=== PATIENT | female | born 1990 | race Caucasian/White ===

== ENCOUNTER 2024-07-14 11:37 | Emergency (ER) | payer BC, SELFPAY ==
--- NOTE | ~2024-07-14 | CT_ITS ---
EXAMINATION: CT abdomen pelvis w con DATE: 07/14/2024 14:38 INDICATION: Abdominal pain TECHNIQUE: Computed tomography (CT) of the abdomen and pelvis was performed with 100 mL Omnipaque-350 intravenous contrast. Automated exposure control and iterative reconstruction technique were employe d. The dose-length product was 941.58 mGy-cm. COMPARISON: None FINDINGS: Couple calcified nodules in the dependent left lower lobe consistent with old granulomatous disease. Mild pectus excavatum which impresses upon the anterior wall of the heart which appears normal in siz e. No pericardial or pleural effusion. Liver, gallbladder, spleen, pancreas, bilateral adrenal glands and kidneys are normal. Bowels including the appendix are normal. Bladder, anteverted uterus and lesvia ateral adnexa are unremarkable. No free intraperitoneal gas or fluid. No pathologically enlarged abdo keiko or pelvic lymphadenopathy. Mild lumbar levocurvature with mild lumbar and lower thoracic spondy losis. A couple bone islands at the right femoral neck. IMPRESSION: 1. No acute intra-abdominal/pelvic process. Reviewed, dictated and finalized at location A.
[2024-07-14 11:52] VITALS: BP 135/90; PULSE 100; RESP 16; TEMP 36.1; O2SAT 100
[2024-07-14 12:14] LABS: BEDSIDEPREGUCG Negative (Negative)
[2024-07-14 12:17] LABS: Basophils Absolute Auto 0.1 K/mm3 (0.0-0.1); Basophils Percent Auto 1.3 % (0.2-1.2); Hematocrit 42.6 % (37.0-47.0); Hemoglobin 13.8 g/dL (12.0-15.0); Immature Granulocyte Absolute 0.01 K/mm3 (0.00-0.031); Immature Granulocyte Percent A 0.2 % (0-0.5); Lymphocytes Absolute Auto 1.04 K/mm3 (0.9-3.2); Mean Corpuscular HGB Conc 32.4 g/dl (32-36); Mean Corpuscular Hemoglobin 30.6 pg (26-34); Mean Corpuscular Volume 94.5 fl (80-100); Mean Platelet Volume 9.7 fl (7.4-10.4); Monocytes Absolute Auto 0.3 K/mm3 (0.1-0.6); Monocytes Percent Auto 6.6 % (2.6-8.5); Neutrophils Absolute Auto 3.3 K/mm3 (1.3-6.7); Neutrophils Percent Auto 69.9 % (45.5-73.1); Platelet Count Result 310 k/mm3 (150-375); Red Blood Count 4.51 M/mm3 (4.2-5.4); Red Cell Distribution Width 13.9 % (11.5-14.5); White Blood Count 4.7 K/mm3 (4.5-10.0)
[2024-07-14 12:23] LABS: Add Urine Microscopic? YES; Appearance Urine Clear (Clear); Bacteria Urine Rare /hpf; Bilirubin Urine Negative (Negative); Blood Urine Negative (Negative); Color Urine Yellow (Yellow); Glucose Urine UA Negative (Negative); Ketones Urine 1+ mg/dL (Negative); Leukocyte Esterase Ur 1+ LEU/UL (Negative); Nitrate Urine Negative (Negative); Non Pathogenic Casts 0-2; Protein Urine Negative (Negative); Specific Grav Ur 1.019 (1.001-1.035); Squamous Epithelial Cell Urine Occasional /hpf (Few); pH Urine 6.5 (5.0-9.0)
[2024-07-14 12:27] LABS: Alanine Aminotransferase 19 U/L (6-35); Albumin Level 4.6 g/dL (3.5-5.1); Alkaline Phosphatase 58 U/L (38-126); Anion Gap 9 mmol/L (4-12); Aspartate Amino Transferase 29 U/L (14-36); Bilirubin,Total 0.9 mg/dL (0.2-1.3); Blood Urea Nitrogen 8 mg/dL (7-17); Calcium 9.4 mg/dL (8.4-10.2); Carbon Dioxide 26 mmol/L (22-30); Chloride 104 mmol/L (98-107); Estimated CRCL calculation 124 ml/min; Estimated Glomerular Filt Rate > 60; Glucose 105 mg/dL (65-110); Lipase 46 U/L (23-300); Sodium 139 mmol/L (137-145)
--- NOTE | 2024-07-14 12:36 | ED.ABDPAIN ---
HPI - Abdominal Pain General Chief Complaint: Abdominal Pain Stated Complaint: Abd pain since -worse since 399 Time Seen by Provider: 07/14/24 12:35 Source: patient and family Mode of arrival: ambulatory Limitations: no limitations History of Present Illness HPI narrative: 33 years old white female came to the ED by private car complaining of mid abdominal pain, across the mid abdomen started 4 days ago, intermittent, get worse when she tried to have a bowel movement. She denies any fever, chills, nausea, vomiting. No history of abdominal surgery. Patient does not take medication at home. Does not smoke or drink or use drugs. Related Data Allergies Allergy/AdvReac Type Severity Reaction Status Date / Time No Known Allergies Allergy Verified 07/14/24 21:19 Review of Systems Review of Systems: All systems reviewed & are unremarkable except as noted in HPI and below Exam Narrative: General appearance: Well-developed, well-nourished Skin: Normal color Head: Normocephalic, nontraumatic Eyes: Clear conjunctiva ENT: Oropharynx normal, ears normal, nose normal Neck: Supple, nontender Chest and respiratory: Airway patent, no respiratory distress, no accessory muscle use Heart: Regular rate/rhythm Abdomen: Soft, nontender, no organomegaly, quiet bowel sounds Vascular: Normal peripheral pulses, normal capillary refill. Musculoskeletal: Normal range of motion, nontender back Neurologic: Alert and oriented ?3, WEIGHER AND CRUSHER is normal as tested, no gross motor deficit Course Course Emergency Course: Patient presents with mid abdominal pain Vital signs are stable Physical examination is unremarkable Blood workup includes CBC, CMP, lipase showed insignificant abnormality Urinalysis showed evidence of infection CT scan of the abdomen and pelvis with IV contrast showed no acute intra-abdominal abnormality Diagnosis urinary tract infection Discharged on Macrobid The pt was discharged to home.the pt,s condition upon discharge was fair,education was provided to the pt in reference to the final impression,discharge study results,treatment,prognosis and need for follow up . Vital Signs Vital signs: Vital Signs Temperature 36.1 C L 07/14/24 11:52 Pulse Rate 100 07/14/24 11:52 Respiratory Rate 16 07/14/24 11:52 Blood Pressure 135/90 07/14/24 11:52 Pulse Oximetry 100 07/14/24 11:52 Oxygen Delivery Room Air 07/14/24 11:52 Temperature 36.1 C L 07/14/24 11:52 Pulse Rate 76 07/14/24 15:19 Respiratory Rate 17 07/14/24 15:19 Blood Pressure 122/89 07/14/24 15:19 Pulse Oximetry 100 07/14/24 15:19 Oxygen Delivery Room Air 07/14/24 11:52 MDM - Abdominal Pain Lab Data 07/14/24 12:11 07/14/24 12:11 Labs: Lab Results 07/14/24 07/14/24 Range/Units 12:09 12:11 WBC 4.7 (4.5-10.0) K/mm3 RBC 4.51 (4.2-5.4) M/mm3 Hgb 13.8 (12.0-15.0) g/dL Hct 42.6 (37.0-47.0) % MCV 94.5 (80-100) fl MCH 30.6 (26-34) pg MCHC 32.4 (32-36) g/dl RDW 13.9 (11.5-14.5) % Plt Count 310 (150-375) k/mm3 MPV 9.7 (7.4-10.4) fl Immature Gran % (Auto) 0.2 (0-0.5) % Neut % (Auto) 69.9 (45.5-73.1) % Lymph % (Auto) 22.0 (18.3-44.2) % [place] % (Auto) 6.6 (2.6-8.5) % Eos % (Auto) 0.0 (0-4.4) % Baso % (Auto) 1.3 H (0.2-1.2) % Lymph # (Auto) 1.04 (0.9-3.2) K/mm3 [place] # (Auto) 0.3 (0.1-0.6) K/mm3 Eos # (Auto) 0.0 (0-0.3) K/mm3 Baso # (Auto) 0.1 (0.0-0.1) K/mm3 Abs Immat Gran (auto) 0.01 (0.00-0.031) K/mm3 Absolute Neuts (auto) 3.3 (1.3-6.7) K/mm3 Absolute Nucleated RBC 0.000 (0.0-0.012) K/mm3 Nucleated RBC % 0.0 (0.0-0.2) % Sodium 139 (137-145) mmol/L Potassium 4.0 (3.4-5.0) mmol/L Chloride 104 (98-107) mmol/L Carbon Dioxide 26 (22-30) mmol/L Anion Gap 9 (4-12) mmol/L BUN 8 (7-17) mg/dL Creatinine 0.69 L (0.7-1.0) mg/dL Estim Creat Clear Calc 124 ml/min Estimated GFR > 60 (59 - ) Glucose 105 (65-110) mg/dL Calcium 9.4 (8.4-10.2) mg/dL Total Bilirubin 0.9 (0.2-1.3) mg/dL AST 29 (14-36) U/L ALT 19 (6-35) U/L Alkaline Phosphatase 58 (38-126) U/L Total Protein 8.0 (6.3-8.2) g/dL Albumin 4.6 (3.5-5.1) g/dL Lipase 46 (23-300) U/L Urine Color Yellow (Yellow) Urine Appearance Clear (Clear) Urine pH 6.5 (5.0-9.0) Ur Specific Sells 1.019 (1.001-1.035) Urine Protein Negative (Negative) mg/dL Urine Glucose (UA) Negative (Negative) mg/dL Urine Ketones 1+ H (Negative) mg/dL Ur Blood (Man) Negative (Negative) Urine Nitrate Negative (Negative) Urine Bilirubin Negative (Negative) Urine Urobilinogen 1.0 (<2.0) mg/dL Leukocyte Esterase Rfl 1+ H (Negative) DANIEL/UL Urine RBC 3-5 H (0-2) /hpf Urine WBC 6-10 H (0-3) /hpf Ur Squamous Epith Cells Occasional (Few) /hpf Urine Bacteria Rare /hpf Urine Casts 0-2 POC Urine HCG, Qual Negative (Negative) Imaging Data Radiologist's impression: ITS Impressions Abdomen/Pelvis CT 07/14/24 14:39 IMPRESSION: 1. No acute intra-abdominal/pelvic process. Discharge Plan Discharge Clinical Impression: Urinary tract infection Patient Disposition: Home Condition: Stable Instructions: Antibiotic Form, Urinary Tract Infection in Women (DC) Additional Instructions: Return if symptoms are worsening , call your family physician for appointment, take Tylenol as as needed for aches and pain, continue home medications. Patient Language: Amharic Prescriptions: New nitrofurantoin monohyd/m-cryst [Macrobid] 100 mg capsule 100 mg PO Q12H 5 Days Qty: 10 0RF Rx Instructions: must administer with a meal/food Follow-up/Referrals: PHYSICIAN,BRAILLE DUPLICATING MACHINE OPERATOR [Primary Care Provider] -
[2024-07-14 15:19] VITALS: BP 122/89; PULSE 76; RESP 17; O2SAT 100
--- OUTSIDE RECORDS SUMMARY | 2024-07-14 18:01 | XMS_ITS | Continuity of Care Document ---
Author Organization [facility] Address [address] [place] [address] Phone Care Team Providers Care Life Skills Instructor Name Role Phone Demetrius Brito MD, FACS Unavailable Unavailab le Allergies, Adverse Reactions, Alerts Substance Reaction Status Criticality No Known Allergies Active No Inform ation Medications Medication Instructions Dosage Effective Dates (start - stop) Status Comments No Drug Therapy Prescribed Procedures Procedure Date No Charge Optomap Fundus Photos 021 Office/outpatient Visit, Est No Charge Optomap Fundus Photos 020 No Charge Orbscan Refraction Eye Exam, New Patient No Charge Refraction Refraction Eye Exam, New Patient Eye Exam & Treatment Eye Exam & Treatment Cntct Lens Hydrophilic Toric Or Prism Ba llast Eye Exam & Treatment CL Replacement - Other Lens Eye Exam & Treatment CL Replacement - Other Lens Eye Exam & Treatment Advance Directives Directive Yes / No Effective Date File Name No Information Encounters Encounter Description Practice Location Reason(s) For Visit Diagnoses Date Provider Providers Copied on Encounter [facility], [address], [place], [place], [address], tel:[phone] SEC Maia Chaparro No Information 8- 4 [place] Demetrius. [facility] [address], [address], [place], [place], [address], [place]. tel:[phone] Office/outpa tient Visit, Est [employer] [facility], [facility] [employer] [address], [place], [place], [address], [place] tel:[phone] SEC Maia Chaparro Complete Exam (chief complaint) AlbinismNysta gmus 1 Zeina OD Jessika. [facility] [employer] [address], [address], [place], [place], [address], [place]. tel:[phone] Referring Provider: Demetrius Garcia, [facility] [address], [place], [address] . tel:[phone] [employer] [facility], [facility] [employer] [address], [place], [place], [address], [place] tel:[phone] SEC [place] ARAIZA Professional Complete Exam (chief complaint) NystagmusAlbi nism 0-[address] [facility] [address], [address], [place], [place], [address], [place]. tel:[phone] Referring Provider: Demetrius Garcia, [facility] [address], [place], [address] . tel:[phone] [employer] [facility], [facility] [employer] [address], [place], [place], [address], [place] tel:[phone] SEC [place] ARAIZA Professional glasses check (chief complaint) Nystagmus 3-201 6 Kory Carlin. [address] [facility], [facility] [place] [address], [place]. tel:[phone] Referring Provider: Tesfaye Garcia [address] [facility] [address], [place], [address] . tel:[phone] [facility], [address], [place], [place], [address], [place] tel:[phone] SEC [place] Professional Difficulty reading (chief complaint) AlbinismNysta gmus 6 Wankaby Carlin. [address] [facility], [address], [place], [place], [address], [place]. tel:[phone] Referring Provider: Tesfaye Garcia, [address] [facility] [address], [place], [address] . tel:[phone] [facility], [address], [place], [place], [address], [place] tel:[phone] SEC [place] TEODORA Professional No Information 2 Wankaby Carlin. [address] [facility], [address], [place], [place], [address], [place]. tel:[phone] Referring Provider: Tesfaye Garcia, [address] [facility] [address], [place], [address] . tel:[phone] [facility], [address], [place], [place], [address], [place] tel:[phone] SEC [place] Professional No Information 1 Wannilson Carlin. [address] [facility], [address] [place], [address], [place]. tel:[phone] Referring Provider: Tesfaye Garcia, [address] [facility] [address], [place], [address] . tel:[phone] [facility], [address], [place], [place], [address], [place] tel:[phone] SEC [place] Professional No Information Michael-2 1-201 0 [employer] [facility] . [address] [facility], [address], [place], [place], [address], [place]. tel:[phone] Referring Provider: Tesfaye Garcia, [address] [facility] [address], [place], [address] . tel:[phone] [facility], [address], [place], [place], [address], [place] tel:[phone] SEC [place] Professional No Information Dec-2 8-200 9 Wankaby Carlin. [address] [facility], [address], [place], [place], [address], [place]. tel:[phone] [facility], [address], [place], [place], [address], [place] tel:[phone] SEC [place] TEODORA Professional No Information Nov-0 5-200 8 [employer] [facility] . [address] [facility], [address], [place], [place], [address], [place]. tel:[phone] Referring Provider: Tesfaye Bradleymarionaby Garcia, [address] [facility] [address], [place], [address] . tel:[phone] [facility], [address], [place], [place], [address], [place] tel:[phone] SEC [place] TE[place]A Professional No Information Oct-1 5-200 8 Wannilson Carlin. [address] [facility], [address] [place], [address], [place]. tel:[phone] [facility], [address], [place], [place], [address], [place] tel:[phone] SEC [place] TE[place] Professional No Information Dec-2 1-200 7 [facility] . [address] [facility], [address], [place], [place], [address], [place]. tel:[phone] Referring Provider: Tesfaye Garcia, [address] [facility] [address], [place], [address] . tel:[phone] [facility], [address], [place], [place], [address], [place] tel:[phone] SEC [place] TE[place] Professional No Information Kory Carlin. [address] [facility], [address], [place], [place], [address], [place]. tel:[phone] Family History Family Member Type Diagnosis Age At Onset No Information Payers Payer name Insurance type Covered republican ID Tiffany leon(s) [employer] [id number] Social History Type Description Quantity Date Captured Comments Alcohol Use Details Unknown Caffeine Use Details Unknown Tobacco Use Status No Information Smoking Status No Information Sex Female Chief Complaint And Reason For Visit No Information Reason For Referral Reason For Referral No Information Plan Of Treatment Date Type Action Status Appointment Maricruz Telles BOOKED History Of Present Illness Encounter Date Complaint History Of Prese nt Illness Complete Exam The 29 year old female presents for evaluation of Complete Exam in the right eye and left eye. Hx of Nystagmus OU and OC Albinism OU. Pt reports stable VA, OU, DV and NV, x 1 yr. Pt would like to have DL form filled out. Complete Exam The 28 year old female presents for evaluation of Complete Exam in the right eye and left eye. Hx of Ocular Albinism and Nystagmus OU. Patient denies any problems or changes with VA. Patient states she hasn't had eye eyes examined since she seen Dr. Horn. Patient would like an updated rx for glasses, aware of fee. Patient does NOT have a PCP. glasses check Difficulty reading The 24 year o ld female presents for a complete exam ou. Monitoring ocular albinism. Patient would like to get a new pair of glasses. Patient denies any changes in vision. Functional Status Date Functional Assessmen t No Information Medications Administered Medication Instructions Dosage Effective Dates (start - stop) Status Comments No Drug Therapy Prescribed Instructions Date Instruction Additional Infor amado Impression/Plan Impression/Plan Impression/Plan - Gl asses check only. Minor change in OS found. New rx for glasses given. Return to clinic as scheduled for routine care. Impression/Plan - Di scussed diagnosis in detail. Will continue to monitor. No treatment needed. Rx for glasses given. Return to clinic in 2 years for complete exam or sooner with any problems. Follow up - Return i n 2 years with Tesfaye Horn M.D. for Complete Exam. Nystagmus - Educational material given Related to Nystagmus Assessments Type Assessment Date No Information Patient Care Teams Name Effective Dates (start - stop) Status Members No Information
--- OUTSIDE RECORDS SUMMARY | 2024-07-14 18:05 | XMS_ITS | Continuity of Care Document ---
Author Organization [facility] Address [address] [place] [address] Phone Care Team Providers Care Real Estate Manager Name Role Phone Demetrius Brito MD, FACS [...] Diagnoses Date Provider Providers Copied on Encounter [facility], [address], [place], [place], [address], tel:[phone] SEC Maia Chaparro No Information 8- 4 [place] Demetrius. [facility] [address], [address], [place], [place], [address], [place]. tel:[phone] Office/outpa tient Visit, Est [facility] [facility], [facility] [address], [place], [place], [address], [place] tel:[phone] SEC Maia Chaparro Complete Exam (chief complaint) AlbinismNysta gmus 1 Zeina OD Jessika. [facility] [address], [address], [place], [place], [address], [place]. tel:[phone] Referring Provider: Demetrius Garcia, [facility] [address], [place], [address] . tel:[phone] [employer] [facility], [facility] [address], [place], [place], [address], [place] tel:[phone] SEC [place] ARAIZA Professional Complete Exam (chief complaint) NystagmusAlbi nism 0-202 0 Alisha Romo. [facility] [address], [address], [place], [place], [address], [place]. tel:[phone] Referring Provider: Demetrius Garcia, [facility] [address], [place], [address] . tel:[phone] [employer] [facility], [facility] [address], [place], [place], [address], [place] tel:[phone] SEC [place] ARAIZA Professional glasses check (chief complaint) Nystagmus 3-201 6 Kory Carlin. [address] [facility], [facility] [place], [address], [place]. tel:[phone] Referring Provider: Tesfaye Garcia [address] [facility] [address], [place], [address] . tel:[phone] [facility], [address], [place], [place], [address], [place] tel:[phone] SEC [place] Professional Difficulty reading (chief complaint) AlbinismNysta gmus 6 Wankaby Carlin. [address] [facility], [address], [place], [place], [address], [place]. tel:[phone] Referring Provider: Tesfaye Garcia, [address] [facility] [address], [place], [address] . tel:[phone] [facility], [address], [place], [place], [address], [place] tel:[phone] SEC [place] TEODORA Professional No Information 2 Wankaby Carlin. [address] [facility], [address], [place], [place], [address], [place]. tel:[phone] Referring Provider: Tesfaye Garcia, [address] [facility] [address], [place], [address] . tel:[phone] [facility], [address], [place], [place], [address], [place] tel:[phone] SEC [place] Professional No Information 1 Wannilson Carlin. [address] [facility], [address] [place], [address], [place]. tel:[phone] Referring Provider: Tesfaye Garcia, [address] [facility] [address], [place], [address] . tel:[phone] [facility], [address], [place], [place], [address], [place] tel:[phone] SEC [place] Professional No Information Michael-2 1-201 0 [facility] . [address] [facility], [address], [place], [place], [address], [place]. tel:[phone] Referring Provider: Tesfaye Garcia, [address] [facility] [address], [place], [address] . tel:[phone] [facility], [address], [place], [place], [address], [place] tel:[phone] SEC [place] Professional No Information Dec-2 8-200 9 Wankaby Carlin. [address] [facility], [address], [place], [place], [address], [place]. tel:[phone] [facility], [address], [place], [place], [address], [place] tel:[phone] SEC [place] TEODORA Professional No Information Nov-0 5-200 8 [employer] [facility] [employer] . [address] [facility], [address], [place], [place], [address], [place]. tel:[phone] Referring Provider: Tesfaye Bradleymarionaby Garcia, [address] [facility] [address], [place], [address] . tel:[phone] [facility], [address], [place], [place], [address], [place] tel:[phone] SEC [place] TEODORA Professional No Information Oct-1 5-200 8 Wannilson Carlin. [address] [facility], [address] [place], [address], [place]. tel:[phone] [facility], [address], [place], [place], [address], [place] tel:[phone] SEC [place] Professional No Information Dec-2 1-200 7 [facility] . [address] [facility], [address], [place], [place], [address], [place]. tel:[phone] Referring Provider: Tesfaye Garcia, [address] [facility] [address], [place], [address] . tel:[phone] [facility], [address], [place], [place], [address], [place] tel:[phone] SEC [place] TEODORA Professional No Information Kory Carlin. [address] [facility], [address], [place], [place], [address], [place]. tel:[phone] Family History Family Member Type Diagnosis Age At Onset No Information Payers Payer name Insurance type Covered green party ID Tiffany leon(s) BCCARMEN [place] Out Of [place] [id number] Social History Type Description Quantity Date Captured [...] to clinic as scheduled for routine care. Nystagmus - Educational material given Related to Nystagmus Follow up - Return i n 2 years with Tesfaye Horn M.D. for Complete Exam. Impression/Plan - Di scussed diagnosis in detail. Will continue to monitor. No treatment needed. Rx for glasses given. Return to clinic in 2 years for complete exam or sooner with any problems. Assessments Type Assessment Date No Information Patient Care Teams Name Effective Dates (start - stop) Status Members No Information
== END 2024-07-14 15:42 | disposition home or self-care (01) ==
PROVIDERS: Emergency Medicine; Emergency Provider Emergency Medicine
DX: N39.0 Urinary tract infection, site not specified (principal)
CPT/HCPCS: 36415; 74177; 80053; 81001; 81025; 83690; 85025; 87086; 99284; Q9967

== ENCOUNTER 2024-07-14 21:18 | Emergency (ER) | payer BC, SELFPAY ==
--- OUTSIDE RECORDS SUMMARY | 2024-07-14 21:20 | XMS_ITS | Continuity of Care Document ---
Author Organization [facility] Address [address] [place] [address] Phone Care Team Providers Care Pool Lifeguard Name Role Phone Demetrius Brito MD, FACS [...] Diagnoses Date Provider Providers Copied on Encounter [facility], [address], [place], [place], [address], tel:[phone] SEC Maia Chaparro No Information 8- 4 [place] Demetrius. [facility] [address], [address], [place], [place], [address], [place]. tel:[phone] Office/outpa tient Visit, Est [facility] [facility], [facility] [address], [place], [place], [address], [place] tel:[phone] SEC Maia Chaparro Complete Exam (chief complaint) AlbinismNysta gmus 1 Zeina OD Jessika. [facility] [employer] [address], [address], [place], [place], [address], [place]. tel:[phone] Referring Provider: Demetrius Garcia, [facility] [address], [place], [address] . tel:[phone] [employer] [facility], [facility] [address] [address], [place], [place], [address], [place] tel:[phone] SEC [place] ARAIZ[place] Professional Complete Exam (chief complaint) NystagmusAlbi nism 0-202 0 Alisha Romo. [facility] [address], [address], [place], [place], [address], [place]. tel:[phone] Referring Provider: Demetrius Garcia, [facility] [address], [place], [address] . tel:[phone] [employer] [facility], [facility] [address], [place], [place], [address], [place] tel:[phone] SEC [place] ARAIZ[place] Professional glasses check (chief complaint) Nystagmus 3-201 6 Kory Carlin. [address] [facility], [facility] [place], [address], [place]. tel:[phone] Referring Provider: Tesfaye Gacria [address], [place], [address] . tel:[phone] [facility], [address], [place], [place], [address], [place] tel:[phone] SEC [place] Professional Difficulty reading (chief complaint) AlbinismNysta gmus 6 Wankaby Carlin. [address], [address], [place], [place], [address], [place]. tel:[phone] Referring Provider: Tesfaye Garcia, [address], [place], [address] . tel:[phone] [facility], [address], [place], [place], [address], [place] tel:[phone] SEC [place] TEODORA Professional No Information 2 Wankaby Carlin. [address], [address], [place], [place], [address], [place]. tel:[phone] Referring Provider: Tesfaye Garcia, [address], [place], [address] . tel:[phone] [facility], [address], [place], [place], [address], [place] tel:[phone] SEC [place] Professional No Information 1 Wannilson Carlin. [address], [address] [place], [address], [place]. tel:[phone] Referring Provider: Tesfaye Garcia, [address], [place], [address] . tel:[phone] [facility], [address], [place], [place], [address], [place] tel:[phone] SEC [place] Professional No Information Michael-2 1-201 0 [employer] . [address], [address], [place], [place], [address], [place]. tel:[phone] Referring Provider: Tesfaye Garcia, [address], [place], [address] . tel:[phone] [facility], [address], [place], [place], [address], [place] tel:[phone] SEC [place] Professional No Information Dec-2 8-200 9 Wankaby Carlin. [address], [address], [place], [place], [address], [place]. tel:[phone] [facility], [address], [place], [place], [address], [place] tel:[phone] SEC [place] TEODORA Professional No Information Nov-0 5-200 8 [employer] . [address] [facility], [address], [place], [place], [address], [place]. tel:[phone] Referring Provider: Tesfaye Bradleymarionaby Garcia, [address], [place], [address] . tel:[phone] [facility], [address], [place], [place], [address], [place] tel:[phone] SEC [place] TE[place] Professional No Information Oct-1 5-200 8 Wannilson Carlin. [address], [address] [place], [address], [place]. tel:[phone] [facility], [address], [place], [place], [address], [place] tel:[phone] SEC [place] TE[place]OR[place] Professional No Information Dec-2 1-200 7 [employer] . [address] [facility] [facility], [address], [place], [place], [address], [place]. tel:[phone] Referring Provider: Tesfaye Garcia, [address], [place], [address] . tel:[phone] [facility], [address], [place], [place], [address], [place] tel:[phone] SEC [place] TE[place]ORA Professional No Information Kory Carlin. [address], [address], [place], [place], [address], [place]. tel:[phone] Family History Family Member Type Diagnosis Age At Onset No Information Payers Payer name Insurance type Covered republican ID Tiffany leon(s) [employer] [place] Out Of State [id number] Social History Type Description Quantity Date Captured [...]
[2024-07-14 21:35] VITALS: BP 146/86; PULSE 65; RESP 17; TEMP 36.1; O2SAT 100
--- NOTE | 2024-07-15 00:34 | PC.NURSE ---
Pt called x2 w no response. Marked as LWBS triaged on dispo.
--- OUTSIDE RECORDS SUMMARY | 2024-07-15 02:54 | XMS_ITS | Continuity of Care Document ---
Author Organization [facility] Address [address] [place] [address] Phone Care Team Providers Care Logging Supervisor Name Role Phone Demetrius Brito MD, FACS [...] Diagnoses Date Provider Providers Copied on Encounter [facility], [address], [place], [place], [address], tel:[phone] SEC Maia Chaparro No Information 8- 4 [place] Demetrius. [facility] [employer], [address], [place], [place], [address], [place]. tel:[phone] Office/outpa tient Visit, [facility], [facility] [address], [place], [place], [address], [place] tel:[phone] SEC Maia Chaparro Complete Exam (chief complaint) AlbinismNysta gmus 1 Zeina OD Jessika. [facility] [employer] [address], [address], [place], [place], [address], [place]. tel:[phone] Referring Provider: Demetrius Garcia, [facility] [employer] [address], [place], [address] . tel:[phone] [facility], [facility] [employer] [address], [place], [place], [address], [place] tel:[phone] SEC [place]IZ[place] Professional Complete Exam (chief complaint) NystagmusAlbi nism 0-202 0 Alisha Romo. [facility] [employer], [address], [place], [place], [address], [place]. tel:[phone] Referring Provider: Demetrius Garcia, [facility] [address], [place], [address] . tel:[phone] [facility], [facility] [employer] [address], [place], [place], [address], [place] tel:[phone] SEC [place]IZ[place] Professional glasses check (chief complaint) Nystagmus 3-201 6 Kory Carlin. [address] [facility], [facility] [place], [place], [address], [place]. tel:[phone] Referring Provider: Tesfaye Garcia [address], [place], [address] . tel:[phone] [facility], [address], [place], [place], [address], [place] tel:[phone] SEC [place] Professional Difficulty reading (chief complaint) AlbinismNysta gmus 6 Wankaby Carlin. [address] [facility], [address], [place], [place], [address], [place]. tel:[phone] Referring Provider: Tesfaye Garcia, [address], [place], [address] . tel:[phone] [facility], [address], [place], [place], [address], [place] tel:[phone] SEC [place] TE[place] Professional No Information 2 Wankaby Carlin. [address] [facility], [address], [place], [place], [address], [place]. tel:[phone] Referring Provider: Tesfaye Garcia, [address], [place], [address] . tel:[phone] [facility], [address], [place], [place], [address], [place] tel:[phone] SEC [place] Professional No Information 1 Wannilson Carlin. [address] [facility], [address] [place], [address], [place]. tel:[phone] Referring Provider: Tesfaye Garcia, [address], [place], [address] . tel:[phone] [facility], [address], [place], [place], [address], [place] tel:[phone] SEC [place] Professional No Information Michael-2 1-201 0 [employer] . [address] [facility], [address], [place], [place], [address], [place]. tel:[phone] Referring Provider: Tesfaye Garcia, [address], [place], [address] . tel:[phone] [facility], [address], [place], [place], [address], [place] tel:[phone] SEC [place] Professional No Information Dec-2 8-200 9 Wankaby Carlin. [address] [facility], [address], [place], [place], [address], [place]. tel:[phone] [facility], [address], [place], [place], [address], [place] tel:[phone] SEC [place] TE[place]ORA Professional No Information Nov-0 5-200 8 [facility] [employer] . [address] [facility], [address], [place], [place], [address], [place]. tel:[phone] Referring Provider: Tesfaye Bradleymarionaby Garcia, [address], [place], [address] . tel:[phone] [facility], [address], [place], [place], [address], [place] tel:[phone] SEC [place] Professional No Information Oct-1 5-200 8 Wannilson Carlin. [address], [address] [place], [address], [place]. tel:[phone] [facility], [address], [place], [place], [address], [place] tel:[phone] SEC [place] TE[place] Professional No Information Dec-2 1-200 7 [employer] . [address] [facility], [address], [place], [place], [address], [place]. tel:[phone] Referring Provider: Tesfaye Garcia, [address], [place], [address] . tel:[phone] [facility], [address], [place], [place], [address], [place] tel:[phone] SEC [place] TE[place] Professional No Information Kory Carlin. [address] [facility] [address], [address], [place], [place], [address], [place]. tel:[phone] Family History Family Member Type Diagnosis Age At Onset No Information Payers Payer name Insurance type Covered democrat ID Tiffany leon(s) [employer] [place] Out Of [place] [id number] Social History Type Description Quantity Date Captured [...]
--- OUTSIDE RECORDS SUMMARY | 2024-07-15 02:56 | XMS_ITS | Referral Summary ---
Author Organization [facility] al Address [address] [place] [address] Care Team Providers Care Teamcenter Solution Architect Name Role Phone No, Physician Primary Care Provider [phone] Encounters Date Type Department Care Team Description 07/14/2024 11:31 PM CDT - Present Emergency [facility] Emergency Department [address] [place] [address] Isamar Obrien MD from Last 3 Months Allergies No known active allergies Social History Tobacco Use Types Packs/Day Years Used Date Smoking Tobacco: Never Assessed Personal Safety Answer Date Recorded Have you ever been in or are you currently in a harmful physical or emotional relationship or is someone making you feel afraid or unsafe? Denies 07/14/2024 Comments No Sex and Gender Information Value Date Recorded Sex Assigned at Not on file Legal Sex Female 4:53 PM [employer] Gender Identity Not on file Sexual Orientation Not on file Last Filed Vital Signs Vital Sign Reading Time Taken Comments Blood Pressure 131/84 07/15/2024 1:50 AM CDT Pulse 57 07/15/2024 1:50 AM CDT Temperature 36.7 C (98.1 F) 07/14/2024 10:24 PM CDT Respiratory Rate 16 07/15/2024 1:50 AM CDT Oxygen Saturation 100% 07/15/2024 1:50 AM CDT Inhaled Oxygen Concentration - - Weight 113.4 kg (250 lb) 07/14/2024 10:24 PM CDT Height 170.2 cm (5' 7) 07/14/2024 10:24 PM CDT Body Mass Index 39.16 07/14/2024 10:24 PM CDT Plan of Treatment Not on file Procedures * The patient is currently admitted. The information in this section might not be complete until the patient is discharged. Procedure Name Priority Date/Time Associated Diagnosis Comments EGFR STAT 07/15/2024 12:57 AM CDT DIFFERENTIAL AUTO STAT 07/15/2024 12: 57 AM CDT LIPASE STAT 07/15/2024 12:57 AM CDT COMPREHENSIVE METABOLIC PANEL STAT 07/15/2024 12:57 AM CDT CBC WITH AUTO DIFFERENTIAL STAT 07/15/2024 12:57 AM CDT POCT HCG, URINE Routine 07/14/2024 11:36 PM CDT URINALYSIS, MICROSCOPIC ONLY STAT 07/14/2024 11:34 PM CDT URINALYSIS AND REFLEX TO MICROSCOPIC STAT 07/14/2024 11:34 PM CDT ECG 12-LEAD STAT 07/14/2024 10:26 PM CDT from Last 3 Months Results * eGFR (07/15/2024 12:57 AM CDT) eGFR >90 >=60 mL/min/1. 73 m2 Comment: Interpretive Data Reference Interval Normal >/= 90 mL/min/1.73m2 Mildly decreased* 60 - 89 mL/min/1.73m2 Mildly to moderately decreased 45 - 59 mL/min/1.73m2 Moderately to severely decreased 30 - 44 mL/min/1.73m2 Severely decreased 15 - 29 mL/min/1.73m2 Kidney Failure < 15 mL/min/1.73m2 *Relative to young adult level Estimated glomerular filtration rate is determined by the 2020 CKD-EPI equation recommended by the National Kidney [employer] (A Unifying Approach to GFR Estimation: Recommendations of the NKF-ASK Task Force on Reassessing the Inclusion of Race in Diagnosing Kidney Disease, JASN 2020). The CKD-EPI equation should not be used for patients with unstable renal function and has not been validated in children and those over 70. Current interpretive data was last reviewed 2020. Blood 07/15/2024 12:5 7 AM CDT 07/15/2024 1:19 AM CDT Dov German MD LAB BLOOD ORDERABLES Final Result [facility] Department [place] [address] * Differential, auto (07/15/2024 12:57 AM CDT) Neutrophil abs 3.88 1.50 - 6.50 K/cumm Imm gran abs 0.04 0.00 - 0.10 K/cumm [facility] Lymphocyte abs 1.12 0.80 - 3.30 K/cumm [facility] Monocyte abs 0.35 0.20 - 0.80 K/cumm [facility] Eosinophil abs 0.16 0.00 - 0.50 K/cumm [facility] Basophil abs 0.04 0.00 - 0.10 K/cumm [facility] Neutrophil pct 69.4 % [facility] Comment: Interpretive Data Percent cell count reference ranges are not reported, since discordance with absolute values may lead to misinterpretation of CBC data. Current Interpretive Data was last revised on 2017. Imm gran pct 0.7 % [facility] Comment: Interpretive Data Percent cell count reference ranges are not reported, since discordance with absolute values may lead to misinterpretation of CBC data. Current Interpretive Data was last revised on 2017. Lymphocyte pct 20.0 % [facility] Comment: Interpretive Data Percent cell count reference ranges are not reported, since discordance with absolute values may lead to misinterpretation of CBC data. Current Interpretive Data was last revised on 2017. Monocyte pct 6.3 % [facility] Comment: Interpretive Data Percent cell count reference ranges are not reported, since discordance with absolute values may lead to misinterpretation of CBC data. Current Interpretive Data was last revised on 2017. Eosinophil pct 2.9 % [facility] Comment: Interpretive Data Percent cell count reference ranges are not reported, since discordance with absolute values may lead to misinterpretation of CBC data. Current Interpretive Data was last revised on 2017. Basophil pct 0.7 % [facility] Comment: Interpretive Data Percent cell count reference ranges are not reported, since discordance with absolute values may lead to misinterpretation of CBC data. Current Interpretive Data was last revised on 2017. Blood 07/15/2024 12:5 7 AM CDT 07/15/2024 1:19 AM CDT us Dov German MD LAB BLOOD ORDERABLES Final Result [facility] Department [place] [address] * CBC with auto differential (07/15/2024 12:57 AM CDT) WBC 5.59 3.80 - 9.90 K/cumm Hgb 13.5 11.9 - 15.5 g/dL [facility] Hct 40.2 35.6 - 45.5 % [facility] Plt 292 150 - 400 K/cumm [facility] MPV 10.1 9.1 - 12.3 fL [facility] RBC 4.36 3.90 - 5.20 M/cumm [facility] MCV 92.2 81.3 - 96.4 fL [facility] MCH 31.0 27.1 - 33.3 pg [facility] MCHC 33.6 32.3 - 35.7 g/dL [facility] RDW CV 14.0 11.1 - 14.9 % [facility] RDW SD 47.3 35.7 - 48.1 fL [facility] NRBC abs 0.00 0.00 - 0.01 K/cumm [facility] Blood 07/15/2024 12:5 7 AM CDT 07/15/2024 1:19 AM CDT us Dov German MD LAB BLOOD ORDERABLES Final Result [facility] [place] [address] * Lipase (07/15/2024 12:57 AM CDT) Pathologist [facility] Lipase 15 10 - 99 Units/L Blood 07/15/2024 12:5 7 AM CDT 07/15/2024 1:19 AM CDT Dov German MD LAB BLOOD ORDERABLES Final Result Performing Organization Address [facility] de Phone Number [facility] [place] [address] * Comprehensive metabolic panel (07/15/2024 12:57 AM CDT) [facility] Sodium 138 135 - 145 mmol/L Potassium, pl 4.0 3.3 - 4.9 mmol/L [facility] Chloride 101 97 - 110 mmol/L [facility] CO2 26 22 - 32 mmol/L [facility] Anion gap 11 2 - 15 mmol/L [facility] BUN 9 6 - 25 mg/dL [facility] Creatinine 0.82 0.60 - 1.10 mg/dL [facility] Glucose 96 70 - 199 mg/dL [facility] Comment: Interpretive Data Fasting glucose >/= 126 mg/dl is diagnostic for diabetes. Fasting is defined as no caloric intake for at least 8 hours. Fasting glucose between 100 mg/dl to 125 mg/dl is diagnostic of prediabetes. In a patient with classic symptoms of hyperglycemia or hyperglycemic crisis, a random glucose >/= 200 mg/dl is diagnostic for diabetes. In the absence of unequivocal hyperglycemia, results should be confirmed by repeat testing. The classification and Diagnosis of Diabetes Diabetes Care 2021; 46: S19-S40. Current interpretive data was last revised 2022. Calcium 9.3 8.5 - 10.3 mg/dL [facility] Bilirubin, total 0.9 0.1 - 1.2 mg/dL [facility] Protein, pl 7.9 6.5 - 8.5 g/dL [facility] Albumin 4.5 3.5 - 5.0 g/dL [facility] Alk phos 58 40 - 130 Units/L [facility] ALT 14 7 - 45 Units/L [facility] AST 24 10 - 45 Units/L [facility] Blood 07/15/2024 12:5 7 AM CDT 07/15/2024 1:19 AM CDT us Dov German MD LAB BLOOD ORDERABLES Final Result [facility] Department [place] [address] * POCT hCG, urine (07/14/2024 11:36 PM CDT) HCG, ur, POC Negative Negative Lot Number [id number] QC Backgroud Clear Acceptable QC Control Line Acceptable Urine 07/14/2024 11:3 6 PM CDT us Isamar Obrien MD POINT OF CARE TEST ORDERABLE S Final Result * (ABNORMAL) Urinalysis reflex to microscopic (07/14/2024 11:34 PM CDT) Color, ur Yellow Yellow Clarity, ur Clear Clear [facility] Specific gravity, ur >1.042(H) 1.003 - 1.030 [facility] pH, urine 6.5 [facility] Comment: Interpretive Data U rine pH is affected by diet, medications, systemic acid-base disturbances, and renal tubular function. pH may affect urinary stone formation. For example, urine pH below 6.0 may help reduce the tendency for calcium phosphate stones and pH greater than 6.0 may reduce the tendency for uric acid stone formation. Source: [employer] Current Interpretive Data was last revised on 2017 Protein, ur ql 1+(A) Negative [facility] Glucose, ur ql Negative Negative [facility] Ketones, ur 4+(A) Negative [facility] Bilirubin, ur Negative Negative [facility] Blood, ur Negative Negative [facility] Urobilinogen, ur <2.0 <2.0 mg/dL [facility] Nitrite, ur Negative Negative [facility] Leukocyte esterase, ur Negative Negative [facility] UA reflex comment Reflex to microscopic UA will be performed. [facility] Urine 07/14/2024 11:3 4 PM CDT 07/14/2024 11:39 PM CDT us Isamar Obrien MD LAB URINE ORDERABLES Final R esult Performing Organization Address [facility] Co de Phone Number [facility] Department [place] [address] * (ABNORMAL) Urinalysis, microscopic only (07/14/2024 11:34 PM CDT) WBC, ur 6-10(A) 0 - 5 /HPF RBC, ur 3-5(A) 0 - 2 /HPF [facility] Epithelial cells, squamous, ur 1-5 0 - 5 /HPF [facility] Bacteria, ur Trace(A) [facility] Mucous, ur Present(A) [facility] Urine 07/14/2024 11:3 4 PM CDT 07/14/2024 11:39 PM CDT us Simone Fernandez MD LAB URINE ORDERABLES Meghan l Result Performing Organization Address [facility] de Phone Number [facility] Department [place] [address] * ECG 12-LEAD (07/14/2024 10:26 PM CDT) Narrative [facility] - 07/14/2024 10:26 PM CDT Frank Gonzalez MD 07/14/2024 10:27 PM ECG 12 lead Date/Time: 07/14/2024 10:26 PM Performed by: Frank Gonzalez MD Authorized by: Simone Fernandez MD Rate: ECG rate: 56 ECG rate assessment: bradycardic Rhythm: Rhythm: sinus rhythm Ectopy: Ectopy: none QRS: QRS axis: Normal QRS intervals: Normal Conduction: Conduction: normal ST segments: ST segments: Normal T waves: T waves: normal Previous ECG: Previous ECG: Unavailable Interpretation: Interpretation: non-specific us Isamar Obrien MD ECG ORDERABLES Final Result [facility] from Last 3 Months Insurance [employer] ACCESS CHOICE Care Teams [employer] Solution [employer] Relationship Specialty Start Date End Date No, Physician PCP - General 07/15/24
--- OUTSIDE RECORDS SUMMARY | 2024-07-15 02:56 | XMS_ITS | Encounter Summary ---
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 Was diagnosed with a UTI. Pain began on with suprapubic pain and nausea. Intensified last night prompting presentation to OSH. Was discharged on course of abx. Pain worsening today after being seen, now radiates to bilat. Flanks andback. Pain is constant in nature, denies any specific urinary symptoms (dysuria, frequency, urgency). Associated with constipation, last BM on . Afebrile. documented in this encounter Miscellaneous Notes * ED Procedure Note - Frank Gonzalez MD - 07/14/2024 10:26 PM CDTAssociated Order(s): ECG 12 lead Procedure ECG 12 lead Date/Time: 07/14/2024 10:26 PM Performed by: Frank Gonzalez MD Authorized by: Simone Fernandez MD Rate: ECG rate: 56 ECG rate assessment: bradycardic Rhythm: Rhythm: sinus rhythm Ectopy: Ectopy: none QRS: QRS axis: Normal QRS intervals: Normal Conduction: Conduction: normal ST segments: ST segments: Normal T waves: T waves: normal Previous ECG: Previous ECG: Unavailable Interpretation: Interpretation: non-specific Frank Gonzalez MD 07/14/245 documented in this encounter Plan of Treatment Pending Results Name Type Priority Associated Diagnoses Date /Time Respiratory pathogen panel Nasopharyngeal Microbiology STAT 07/15/2024 12:57 AM CDT Scheduled Orders Name Type Priority Associated Diagnoses Order Schedule Respiratory pathogen panel Nasopharyngeal Microbiology Routine Once for 1 Occurrences starting 07/15/2024 until 07/15/2024 documented as of this encounter Procedures * The patient is currently admitted. The information in this section might not be complete until the patient is discharged. Procedure Name Priority Date/Time Associated Diagnosis Comments EGFR STAT 07/15/2024 12:57 AM CDT DIFFERENTIAL AUTO STAT 07/15/2024 12: 57 AM CDT CBC WITH AUTO DIFFERENTIAL STAT 07/15/2024 12:57 AM CDT LIPASE STAT 07/15/2024 12:57 AM CDT COMPREHENSIVE METABOLIC PANEL STAT 07/15/2024 12:57 AM CDT POCT HCG, URINE Routine 07/14/2024 11:36 PM CDT URINALYSIS AND REFLEX TO MICROSCOPIC STAT 07/14/2024 11:34 PM CDT URINALYSIS, MICROSCOPIC ONLY STAT 07/14/2024 11:34 PM CDT ECG 12-LEAD STAT 07/14/2024 10:26 PM CDT documented in this encounter Results * eGFR (07/15/2024 12:57 AM CDT) [...] German MD LAB BLOOD ORDERABLES Final Result [facility] One [facility] Department [place] [address] * Differential, auto (07/15/2024 12:57 AM CDT) Neutrophil abs 3.88 1.50 - 6.50 K/cumm Imm gran abs 0.04 0.00 - 0.10 K/cumm [facility] Lymphocyte abs 1.12 0.80 - 3.30 K/cumm [facility] Monocyte abs 0.35 0.20 - 0.80 K/cumm [facility] Eosinophil abs 0.16 0.00 - 0.50 K/cumm [facility] Basophil abs 0.04 0.00 - 0.10 K/cumm [facility] Neutrophil pct 69.4 % [facility] Comment: Interpretive Data Percent cell count reference ranges are not reported, since discordance with absolute values may lead to misinterpretation of CBC data. Current Interpretive Data was last revised on 2017. Imm gran pct 0.7 % [facility] Comment: Interpretive Data Percent cell count reference ranges are not reported, since discordance with absolute values may lead to misinterpretation of CBC data. Current Interpretive Data was last revised on 2017. Lymphocyte pct 20.0 % [facility] Comment: Interpretive Data Percent cell count reference ranges are not reported, since discordance with absolute values may lead to misinterpretation of CBC data. Current Interpretive Data was last revised on 2017. Monocyte pct 6.3 % [facility] Comment: Interpretive Data Percent cell count reference ranges are not reported, since discordance with absolute values may lead to misinterpretation of CBC data. Current Interpretive Data was last revised on 2017. Eosinophil pct 2.9 % [facility] Comment: Interpretive Data Percent cell count reference ranges are not reported, since discordance with absolute values may lead to misinterpretation of CBC data. Current Interpretive Data was last revised on 2017. Basophil pct 0.7 % [facility] Comment: Interpretive Data Percent cell count reference ranges are not reported, since discordance with absolute values may lead to misinterpretation of CBC data. Current Interpretive Data was last revised on 2017. Blood 07/15/2024 12:5 7 AM CDT 07/15/2024 1:19 AM CDT Dov German MD LAB BLOOD ORDERABLES Final Result Performing Organization Address City/[facility]/ZIP Co de Phone Number [facility] Department [place] [address] * Lipase (07/15/2024 12:57 AM CDT) [facility] Lipase 15 10 - 99 Units/L Blood 07/15/2024 12:5 7 AM CDT 07/15/2024 1:19 AM CDT Dov German MD LAB BLOOD ORDERABLES Final Result Performing Organization Address [facility] Co de Phone Number [facility] Department [place] [address] * Comprehensive metabolic panel (07/15/2024 12:57 AM CDT) Pathologist [facility] Sodium 138 135 - 145 mmol/L Potassium, pl 4.0 3.3 - 4.9 mmol/L [facility] Chloride 101 97 - 110 mmol/L [facility] CO2 26 22 - 32 mmol/L [facility] Anion gap 11 2 - 15 mmol/L [facility] BUN 9 6 - 25 mg/dL [facility] Creatinine 0.82 0.60 - 1.10 mg/dL [facility] Glucose 96 70 - 199 mg/dL [facility] Comment: Interpretive Data Fasting glucose >/= [...] 2022. Calcium 9.3 8.5 - 10.3 mg/dL [facility] Bilirubin, total 0.9 0.1 - 1.2 mg/dL [facility] Protein, pl 7.9 6.5 - 8.5 g/dL [facility] Albumin 4.5 3.5 - 5.0 g/dL [facility] Alk phos 58 40 - 130 Units/L [facility] ALT 14 7 - 45 Units/L [facility] AST 24 10 - 45 Units/L [facility] Blood 07/15/2024 12:5 7 AM CDT 07/15/2024 1:19 AM CDT us Dov German MD LAB BLOOD ORDERABLES Final Result [facility] One [facility] Department [place] [address] * CBC with auto differential (07/15/2024 12:57 AM CDT) WBC 5.59 3.80 - 9.90 K/cumm Hgb 13.5 11.9 - 15.5 g/dL [facility] Hct 40.2 35.6 - 45.5 % [facility] Plt 292 150 - 400 K/cumm [facility] MPV 10.1 9.1 - 12.3 fL [facility] RBC 4.36 3.90 - 5.20 M/cumm [facility] MCV 92.2 81.3 - 96.4 fL [facility] MCH 31.0 27.1 - 33.3 pg [facility] MCHC 33.6 32.3 - 35.7 g/dL [facility] RDW CV 14.0 11.1 - 14.9 % [facility] RDW SD 47.3 35.7 - 48.1 fL [facility] NRBC abs 0.00 0.00 - 0.01 K/cumm [facility] Blood 07/15/2024 12:5 7 AM CDT 07/15/2024 1:19 AM CDT us Dov German MD LAB BLOOD ORDERABLES Final Result Performing Organization Address City/[facility]/ZIP Co de Phone Number [facility] Department [place] [address] * POCT hCG, urine (07/14/2024 11:36 PM CDT) Pathologist [facility] HCG, ur, POC Negative Negative Lot Number [id number] QC Backgroud Clear Acceptable QC Control Line Acceptable Urine 07/14/2024 11:3 6 PM CDT us Isamar Obrien MD POINT OF CARE TEST ORDERABLE S Final Result * (ABNORMAL) Urinalysis, microscopic only (07/14/2024 11:34 PM CDT) Pathologist [facility] WBC, ur 6-10(A) 0 - 5 /HPF RBC, ur 3-5(A) 0 - 2 /HPF [facility] Epithelial cells, squamous, ur 1-5 0 - 5 /HPF [facility] Bacteria, ur Trace(A) [facility] Mucous, ur Present(A) [facility] Urine 07/14/2024 11:3 4 PM CDT 07/14/2024 11:39 PM CDT us Simone Fernandez MD LAB URINE ORDERABLES Meghan l Result Performing Organization Address [facility]/ZIP Co de Phone Number [facility] Department [place] [address] * (ABNORMAL) Urinalysis reflex to microscopic (07/14/2024 11:34 PM CDT) Color, ur Yellow Yellow Clarity, ur Clear Clear [facility] Specific gravity, ur >1.042(H) 1.003 - 1.030 [facility] pH, urine 6.5 [facility] Comment: Interpretive Data U rine pH is affected by diet, medications, systemic acid-base disturbances, and renal tubular function. pH may affect urinary stone formation. For example, urine pH below 6.0 may help reduce the tendency for calcium phosphate stones and pH greater than 6.0 may reduce the tendency for uric acid stone formation. Source: [facility] [employer] Current Interpretive Data was last revised on 2017 Protein, ur ql 1+(A) Negative [facility] Glucose, ur ql Negative Negative [facility] Ketones, ur 4+(A) Negative [facility] Bilirubin, ur Negative Negative [facility] Blood, ur Negative Negative [facility] Urobilinogen, ur <2.0 <2.0 mg/dL [facility] Nitrite, ur Negative Negative [facility] Leukocyte esterase, ur Negative Negative [facility] UA reflex comment Reflex to microscopic UA will be performed. [facility] Urine 07/14/2024 11:3 4 PM CDT 07/14/2024 11:39 PM CDT Isamar Obrien MD LAB URINE ORDERABLES Final R esult [facility] One [facility] Department [place] [address] * ECG 12-LEAD (07/14/2024 10:26 PM CDT) Narrative [facility] - 07/14/2024 10:26 PM CDT Frank Gonzalez [...] ECG: Previous ECG: Unavailable Interpretation: Interpretation: non-specific Isamar Obrien MD ECG ORDERABLES Final Result [facility] documented in this encounter Visit Diagnoses Not on filedocumented in this encounter Administered Medications Inactive Administered Medications - up to 3 most recent administrations Medication Order MAR Action Action Date Dose Rate Site acetaminophen (TYLENOL) tablet 1,000 mg 1,000 mg, oral, Once, On Mon07/15/24 at 0009, For 1 dose Given 07/15/2024 12:55 AM CDT 1,000 mg ketorolac (TORADOL) 15 mg/mL injection 15 mg 15 mg, intravenous, Once, On Mon07/15/24 at 0009, For 1 dose, For Adult IV push, administer over 15 seconds Given 07/15/2024 12:55 AM CDT 15 mg Lactated Ringer's (LR) bolus 1,000 mL 1,000 mL, intravenous, Once, On Mon07/15/24 at 0009, For 1 dose New Bag 07/15/2024 1:02 AM CDT 1,000 mL ondansetron (ZOFRAN) injection 4 mg 4 mg, intravenous, Administer over 2 Minutes, Once, On Mon07/15/24 at 0009, For 1 dose Given 07/15/2024 1:02 AM CDT 4 mg documented in this encounter Active and Recently Administered Medications Times are shown in CDT. Scheduled Medication Order 07/13/2024 07/14/2024 07/15/2024 acetaminophen (TYLENOL) tablet 1,000 mg (COMPLETED) 1,000 mg, oral, Once, On Mon07/15/24 at 0009, For 1 dose 0055 (Given - Provid er: Yudi Lewis RN) ketorolac (TORADOL) 15 mg/mL injection 15 mg (COMPLETED) 15 mg, intravenous, Once, On Mon07/15/24 at 0009, For 1 dose, For Adult IV push, administer over 15 seconds 0055 (Given - Provid er: Yudi Lewis RN) Lactated Ringer's (LR) bolus 1,000 mL (COMPLETED) 1,000 mL, intravenous, Once, On Mon07/15/24 at 0009, For 1 dose 0102 (New Bag - Prov ider: Yudi Lewis RN)0154 (Stopped - Provider: Roma Maria RN) ondansetron (ZOFRAN) injection 4 mg (COMPLETED) 4 mg, intravenous, Administer over 2 Minutes, Once, On Mon07/15/24 at 0009, For 1 dose 0102 (Given - Provid er: Yudi Lewis RN) documented in this encounter Orders Nursing Count Last Ordered Date First Orde red Date MISCELLANEOUS NURSING CARE ORDER (SPECIFY) 2 07/14/2024 documented in this encounter
--- OUTSIDE RECORDS SUMMARY | 2024-07-15 02:56 | XMS_ITS | Clinical Summary ---
Author Organization [facility] Address [address] [place] [address] Care Team Providers Care Financial Rep Name Role Phone No, Physician Primary Care Provider [phone] Allergies No known active allergies Encounters Date Type Department Care Team Description 07/14/2024 11:31 PM CDT - Present Emergency 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 Gender Identity Not on file Sexual Orientation Not on file Obstetrics History Last Filed Vital Signs Vital Sign Reading [...] 07/14/2024 10:24 PM CDT Plan of Treatment Health Maintenance Due Date Last Done Comments Cervical Cancer Screening 1990 Depression Screening 1990 Hepatitis C Screening 1990 DTaP/Tdap/Td Vaccine (1 - Tdap) 2001 Varicella Vaccines (1 of 2 - 13+ 2-dose series) 08/16/2003 Hepatitis B Screening 2008 Regular Well Visit/Exam 18-64 2008 Influenza Vaccine (Season Ended) 2024 HPV Vaccines Aged Out No longer eligi ble based on patient's age to complete this topic Pneumococcal vaccine <65 Aged Out No longer eligible based on patient's age to complete this topic Procedures * The patient is currently admitted. [...] German MD LAB BLOOD ORDERABLES Final Result [facility] One [facility] Department [place] [address] * Differential, auto (07/15/2024 12:57 AM CDT) Neutrophil abs 3.88 1.50 - 6.50 K/cumm Imm gran abs 0.04 0.00 - 0.10 K/cumm [facility] Lymphocyte abs 1.12 0.80 - 3.30 K/cumm [facility] Monocyte abs 0.35 0.20 - 0.80 K/cumm [facility] Eosinophil abs 0.16 0.00 - 0.50 K/cumm [facility] Basophil abs 0.04 0.00 - 0.10 K/cumm [facility] Neutrophil pct 69.4 % [facility] Comment: Interpretive Data Percent cell count reference ranges are not reported, since discordance with absolute values may lead to misinterpretation of CBC data. Current Interpretive Data was last revised on 2017. Imm gran pct 0.7 % [facility] Comment: Interpretive Data Percent cell count reference ranges are not reported, since discordance with absolute values may lead to misinterpretation of CBC data. Current Interpretive Data was last revised on 2017. Lymphocyte pct 20.0 % [facility] Comment: Interpretive Data Percent cell count reference ranges are not reported, since discordance with absolute values may lead to misinterpretation of CBC data. Current Interpretive Data was last revised on 2017. Monocyte pct 6.3 % [facility] Comment: Interpretive Data Percent cell count reference ranges are not reported, since discordance with absolute values may lead to misinterpretation of CBC data. Current Interpretive Data was last revised on 2017. Eosinophil pct 2.9 % [facility] Comment: Interpretive Data Percent cell count reference ranges are not reported, since discordance with absolute values may lead to misinterpretation of CBC data. Current Interpretive Data was last revised on 2017. Basophil pct 0.7 % [facility] Comment: Interpretive Data Percent cell count reference ranges are not reported, since discordance with absolute values may lead to misinterpretation of CBC data. Current Interpretive Data was last revised on 2017. Blood 07/15/2024 12:5 7 AM CDT 07/15/2024 1:19 AM CDT us Dov German MD LAB BLOOD ORDERABLES Final Result [facility] Department [place] [address] * CBC with auto differential (07/15/2024 12:57 AM CDT) WBC 5.59 3.80 - 9.90 K/cumm Hgb 13.5 11.9 - 15.5 g/dL [facility] Hct 40.2 35.6 - 45.5 % [facility] Plt 292 150 - 400 K/cumm [facility] MPV 10.1 9.1 - 12.3 fL [facility] RBC 4.36 3.90 - 5.20 M/cumm [facility] MCV 92.2 81.3 - 96.4 fL [facility] MCH 31.0 27.1 - 33.3 pg [facility] MCHC 33.6 32.3 - 35.7 g/dL [facility] RDW CV 14.0 11.1 - 14.9 % [facility] RDW SD 47.3 35.7 - 48.1 fL [facility] NRBC abs 0.00 0.00 - 0.01 K/cumm [facility] Blood 07/15/2024 12:5 7 AM CDT 07/15/2024 1:19 AM CDT Dov German MD LAB BLOOD ORDERABLES Final Result [facility] [place] [address] * Lipase (07/15/2024 12:57 AM CDT) Pathologist [facility] Lipase 15 10 - 99 Units/L Blood 07/15/2024 12:5 7 AM CDT 07/15/2024 1:19 AM CDT Dov German MD LAB BLOOD ORDERABLES Final Result Performing Organization Address City/[facility] Co de Phone Number [facility] [place] [address] * Comprehensive metabolic panel (07/15/2024 12:57 AM CDT) Pathologist [facility] Sodium 138 135 - 145 mmol/L Potassium, pl 4.0 3.3 - 4.9 mmol/L [facility] Chloride 101 97 - 110 mmol/L [facility] CO2 26 22 - 32 mmol/L [facility] Anion gap 11 2 - 15 mmol/L [facility] BUN 9 6 - 25 mg/dL [facility] Creatinine 0.82 0.60 - 1.10 mg/dL [facility] Glucose 96 70 - 199 mg/dL [facility] Comment: Interpretive Data Fasting glucose >/= [...] 2022. Calcium 9.3 8.5 - 10.3 mg/dL [facility] Bilirubin, total 0.9 0.1 - 1.2 mg/dL [facility] Protein, pl 7.9 6.5 - 8.5 g/dL [facility] Albumin 4.5 3.5 - 5.0 g/dL [facility] Alk phos 58 40 - 130 Units/L [facility] ALT 14 7 - 45 Units/L [facility] AST 24 10 - 45 Units/L [facility] Blood 07/15/2024 12:5 7 AM CDT 07/15/2024 1:19 AM CDT us Dov German MD LAB BLOOD ORDERABLES Final Result [facility] Department [place] [address] * POCT hCG, urine (07/14/2024 11:36 PM CDT) HCG, ur, POC Negative Negative Lot Number [id number] QC Backgroud Clear Acceptable QC Control Line Acceptable Urine 07/14/2024 11:3 6 PM CDT us Isamar Obrien MD POINT OF CARE TEST ORDERABLE S Final Result * (ABNORMAL) Urinalysis reflex to microscopic (07/14/2024 11:34 PM CDT) Color, ur Yellow Yellow Clarity, ur Clear Clear [facility] Specific gravity, ur >1.042(H) 1.003 - 1.030 [facility] pH, urine 6.5 [facility] Comment: Interpretive Data U rine pH is affected by diet, medications, systemic acid-base disturbances, and renal tubular function. pH may affect urinary stone formation. For example, urine pH below 6.0 may help reduce the tendency for calcium phosphate stones and pH greater than 6.0 may reduce the tendency for uric acid stone formation. Source: [facility] Current Interpretive Data was last revised on 2017 Protein, ur ql 1+(A) Negative [facility] Glucose, ur ql Negative Negative [facility] Ketones, ur 4+(A) Negative [facility] Bilirubin, ur Negative Negative [facility] Blood, ur Negative Negative [facility] Urobilinogen, ur <2.0 <2.0 mg/dL [facility] Nitrite, ur Negative Negative [facility] Leukocyte esterase, ur Negative Negative [facility] UA reflex comment Reflex to microscopic UA will be performed. [facility] Urine 07/14/2024 11:3 4 PM CDT 07/14/2024 11:39 PM CDT us Isamar Obrien MD LAB URINE ORDERABLES Final R esult Performing Organization Address City/[facility]/ZIP Co de Phone Number [facility] Department [place] [address] * (ABNORMAL) Urinalysis, microscopic only (07/14/2024 11:34 PM CDT) WBC, ur 6-10(A) 0 - 5 /HPF RBC, ur 3-5(A) 0 - 2 /HPF [facility] Epithelial cells, squamous, ur 1-5 0 - 5 /HPF [facility] Bacteria, ur Trace(A) [facility] Mucous, ur Present(A) [facility] Urine 07/14/2024 11:3 4 PM CDT 07/14/2024 11:39 PM CDT us Simone Fernandez MD LAB URINE ORDERABLES Meghan l Result Performing Organization Address City/[facility]/ZIP Co de Phone Number [facility] Department [place] [address] * ECG 12-LEAD (07/14/2024 10:26 PM CDT) Narrative [facility] - 07/14/2024 10:26 PM CDT [...] Isamar Obrien MD ECG ORDERABLES Final Result [facility] from Last 3 Months Insurance ACCESS CHOICE Member Subscriber Plan / Payer (Ef fective 2023-Present) Name:Maricruz Telles Member ID:[id number] Relation to Subscriber:Self Name:Maricruz Telles Subscriber ID:[id number] Payer ID:[id number] (NAIC) Type: ANALILIA Address: [facility] [id number] [id number] Care Teams Financial Rep Relationship Specialty Start Date End Date No, Physician PCP - General 07/15/24
== END 2024-07-15 00:34 | disposition left against medical advice (07) ==
LOC: ANHED 07-15 02:53
DX: R10.9 Unspecified abdominal pain (principal)
CPT/HCPCS: 99199